=== PATIENT | male | born 1960 | race Two or more races ===

== ENCOUNTER 2018-10-03 11:32 | Emergency (ER) | payer OTHER ==
[~2018-10-03] VITALS: Ht 177.8 cm; Wt 95.3 kg
[2018-10-03 12:22] LABS: BASO % 1 % (0-3); EOS # 0.2 x10^3/uL (0.0-0.7); EOS % 5 % (0-3); HEMATOCRIT 45.1 % (39.0-53.0); HEMOGLOBIN 15.2 g/dL (13.0-17.5); LYMPH # 1.4 x10^3/uL (1.0-4.8); LYMPH % 29 % (24-48); MEAN CORPUSCULAR HEMOGLOBIN 30 pg (25-35); MEAN CORPUSCULAR HGB CONC 34 g/dL (31-37); MEAN CORPUSCULAR VOLUME 90 fL (79-100); MONO # 0.5 x10^3/uL (0.0-1.1); MONO % 9 % (0-9); NEUT # 2.8 x10^3uL (1.8-7.7); NEUT % 57 % (31-73); PLATELET COUNT 210 x10^3/uL (140-400); RED BLOOD COUNT 5.04 x10^6/uL (4.30-5.70); RED CELL DISTRIBUTION WIDTH 12.9 % (11.5-14.5); WHITE BLOOD COUNT 4.9 x10^3/uL (4.0-11.0)
[2018-10-03] MEDS ORDERED: ONDANSETRON PF 4 MG/2 ML VIAL. IV ONE (12:30)
[2018-10-03] MEDS ORDERED: IV NORMAL SALINE 1000ML BAG 1,000 ML IV SCH (12:30)
[2018-10-03] MEDS ORDERED: fentaNYL PF VIAL 100 MCG/2 ML VIAL IV ONE (12:30)
[2018-10-03 12:35] LABS: CALCIUM 8.6 mg/dL (8.5-10.1); CREATININE 1.4 mg/dL (0.7-1.3); GFR 52.2; POTASSIUM 3.8 mmol/L (3.5-5.1)
[2018-10-03 12:39] LABS: ALBUMIN/GLOBULIN RATIO 1.2 (1.0-1.7); TOTAL PROTEIN 7.3 g/dL (6.4-8.2)
--- NOTE | 2018-10-03 12:53 | EKG ---
[facility] [address] [place] [address] Test Date: 2018-10-03 Test Time: 11:45:45 Pat Name: TIMMY DAS Department: Room: Gender: M Inventory Auditor: : 1960 Requested By: AGUSTIN BUENROSTRO Order Number: [id number] Reading MD: Balaji Cai Measurements Intervals [place] Rate: 65 P: 41 RI: 210 QRS: -12 QRSD: 96 T: 9 QT: 382 QTc: 398 Interpretive Statements SINUS RHYTHM LEFTWARD AXIS Electronically Signed On 10-24-2018 12:30:44 CDT by Balaji Cai
--- NOTE | 2018-10-03 12:53 | RAD ---
CT abdomen pelvis without contrast dated 10/03/2018. No comparison available. CLINICAL INDICATION: Left lower quadrant pain for one day. TECHNIQUE: Contiguous axial imaging the abdomen and pelvis performed without the administration of IV or oral contrast. One or more of the following individualized dose reduction techniques were utilized for this examination: 1. Automated exposure control 2. Adjustment of the mA and/or kV according to patient size 3. Use of iterative reconstruction technique FINDINGS: There is a 7 mm calcific stone at the left UVJ with mild proximal dilation of the left ureter and left pelvicalyceal system. No calcific stone within the substance of either kidney. Liver, spleen, pancreas, adrenal glands and gallbladder are unremarkable. Unopacified GI tract normal in caliber and contour. No focal bowel wall thickening. No inflammatory stranding in the mesentery. The appendix is normal in caliber. No ascites or lymphadenopathy. Images of pelvis show nondistended urinary bladder. Prostate gland mildly enlarged. No free fluid or pelvic lymphadenopathy. Limited images of the lung bases are clear. Heart size within normal limits. No pleural or pericardial effusion. Bone windows show no acute findings. Mild to moderate lower lumbar spondylosis. IMPRESSION: 1. There is a 7 mm calcific stone at the left UVJ with mild obstructive uropathy. 2. Prostatomegaly. 3. Otherwise no acute findings. Electronically signed by: Clem Hernandez MD (10/03/2018 12:50 PM) [id number]
--- NOTE | 2018-10-03 13:08 | PHYS DOC ---
Past Medical History Past Medical History: No Pertinent History Past Surgical History: Other Additional Past Surgical Histo: VASECTOMY Alcohol Use: None Drug Use: None Adult General Chief Complaint Chief Complaint: ABDOMINAL PAIN HPI HPI Patient is a 57 year old male who brought in by EMS because of abdominal pain. Patient complaining of sudden onset of left lower quadrant pain about 30 minutes prior to arrival to ER as a constant sharp pain that getting better and worse without radiation. Patient complaining of nausea without vomiting, fever and chills, symptoms, shortness of breath and chest pain. Patient denies history of the same pain and recent dehydration. Patient rated his pain 10 over 10 and did not take pain medication for EMS. Review of Systems Review of Systems Constitutional: Denies fever or chills [] Eyes: Denies change in visual acuity, redness, or eye pain [] HENT: Denies nasal congestion or sore throat [] Respiratory: Denies cough or shortness of breath [] Cardiovascular: No additional information not addressed in HPI [] GI: Reports abdominal pain, nausea, denies vomiting, bloody stools or diarrhea [] : Denies dysuria or hematuria [] Musculoskeletal: Denies back pain or joint pain [] Integument: Denies rash or skin lesions [] Neurologic: Denies headache, focal weakness or sensory changes [] Endocrine: Denies polyuria or polydipsia [] All other systems were reviewed and found to be within normal limits, except as documented in this note. Current Medications Current Medications Current Medications Medications (Trade) Dose Ordered Sig/Baldomero Start Time Stop Time Status Last Admin Dose Admin Fentanyl Citrate (Fentanyl 2ml Vial) 50 mcg 1X ONCE 10/03/18 12:30 10/03/18 12:31 DC 10/03/18 12:35 50 MCG Ondansetron HCl (Zofran) 4 mg 1X ONCE 10/03/18 12:30 10/03/18 12:31 DC Sodium Chloride 1,000 ml @ 1,000 mls/hr 1X ONCE 10/03/18 14:00 10/03/18 14:58 DC 10/03/18 13:58 1,000 MLS/HR Allergies Allergies Allergies Coded Allergies Type Severity Reaction Last Updated Verified Sulfa (Sulfonamide Antibiotics) Allergy Intermediate 10/03/18 Yes Physical Exam Physical Exam Constitutional: Well developed, well nourished, moderate distress, non-toxic appearance. [] HENT: Normocephalic, atraumatic, oropharynx moist. Eyes: PERRLA, EOMI, conjunctiva normal, no discharge. [] Neck: Normal range of motion, no tenderness, supple, no stridor. [] Cardiovascular:Heart rate regular rhythm, no murmur [] Lungs & Thorax: Bilateral breath sounds clear to auscultation [] Abdomen: Bowel sounds normal, soft, left lower quadrant guarding, no tenderness, no masses, no pulsatile masses. [] Skin: Warm, dry, no erythema, no rash. [] Back: No tenderness, no CVA tenderness. [] Extremities: No tenderness, no cyanosis, no clubbing, ROM intact, no edema. [] Neurologic: Alert and oriented X 3, normal motor function, normal sensory function, no focal deficits noted. [] Psychologic: Affect normal, judgement normal, mood normal. [] Current Patient Data Vital Signs Vital Signs Date Time Temp Pulse Resp B/P (MAP) Pulse Ox O2 Delivery O2 Flow Rate FiO2 10/03/18 14:08 70 14 133/66 (88) 10/03/18 13:38 95 10/03/18 11:39 Room Air 10/03/18 11:32 97.7 97.7 Lab Values Laboratory Tests Test 10/03/18 11:52 10/03/18 13:51 White Blood Count 4.9 x10^3/uL (4.0-11.0) Red Blood Count 5.04 x10^6/uL (4.30-5.70) Hemoglobin 15.2 g/dL (13.0-17.5) Hematocrit 45.1 % (39.0-53.0) Mean Corpuscular Volume 90 fL (79-100) Mean Corpuscular Hemoglobin 30 pg (25-35) Mean Corpuscular Hemoglobin Concent 34 g/dL (31-37) Red Cell Distribution Width 12.9 % (11.5-14.5) Platelet Count 210 x10^3/uL (140-400) Neutrophils (%) (Auto) 57 % (31-73) Lymphocytes (%) (Auto) 29 % (24-48) Monocytes (%) (Auto) 9 % (0-9) Eosinophils (%) (Auto) 5 % (0-3) H Basophils (%) (Auto) 1 % (0-3) Neutrophils # (Auto) 2.8 x10^3uL (1.8-7.7) Lymphocytes # (Auto) 1.4 x10^3/uL (1.0-4.8) Monocytes # (Auto) 0.5 x10^3/uL (0.0-1.1) Eosinophils # (Auto) 0.2 x10^3/uL (0.0-0.7) Basophils # (Auto) 0.0 x10^3/uL (0.0-0.2) Sodium Level 137 mmol/L (136-145) Potassium Level 3.8 mmol/L (3.5-5.1) Chloride Level 99 mmol/L (98-107) Carbon Dioxide Level 22 mmol/L (21-32) Anion Gap 16 (6-14) H Blood Urea Nitrogen 33 mg/dL (8-26) H Creatinine 1.4 mg/dL (0.7-1.3) H Estimated GFR (Cockcroft-Gault) 52.2 BUN/Creatinine Ratio 24 (6-20) H Glucose Level 166 mg/dL (70-99) H Calcium Level 8.6 mg/dL (8.5-10.1) Total Bilirubin 1.0 mg/dL (0.2-1.0) Aspartate Amino Transferase (AST) 26 U/L (15-37) Alanine Aminotransferase (ALT) 37 U/L (16-63) Alkaline Phosphatase 106 U/L (46-116) Total Protein 7.3 g/dL (6.4-8.2) Albumin 4.0 g/dL (3.4-5.0) Albumin/Globulin Ratio 1.2 (1.0-1.7) Lipase 135 U/L (73-393) Urine Color Yellow Urine Clarity Clear Urine pH 5.0 Urine Specific [place] >=1.030 Urine Protein Negative mg/dL (NEG-TRACE) Urine Glucose (UA) Negative mg/dL (NEG) Urine Ketones (Stick) Negative mg/dL (NEG) Urine Blood Large (NEG) Urine Nitrite Negative (NEG) Urine Bilirubin Negative (NEG) Urine Urobilinogen Dipstick 0.2 mg/dL (0.2 mg/dL) Urine Leukocyte Esterase Negative (NEG) Urine RBC 6-10 /HPF (0-2) Urine WBC 1-4 /HPF (0-4) Urine Squamous Epithelial Cells Occ /LPF Urine Bacteria 0 /HPF (0-FEW) Urine Mucus Mod /LPF Laboratory Tests 10/03/18 11:52 Laboratory Tests 10/03/18 11:52 EKG EKG EKG interpreted by me. EKG at 1115 showed normal sinus rhythm at rate of 65, left gutiérrez axis, no acute ST and T-wave abnormalities. Radiology/Procedures Radiology/Procedures [facility] [address] [place] [address] IMAGING REPORT Signed PATIENT: TIMMY DAS ACCOUNT: [id number] : 1960 LOCATION: ER AGE: 57 SEX: M EXAM STATUS: REG ER ORD. PHYSICIAN: AGUSTIN BUENROSTRO MD REASON: LLQ pain x1 day PROCEDURE: CT ABDOMEN PELVIS WO CONTRAST CT abdomen pelvis without contrast dated 10/03/2018. No comparison available. CLINICAL INDICATION: Left lower quadrant pain for one day. TECHNIQUE: Contiguous axial imaging the abdomen and pelvis performed without the administration of IV or oral contrast. One or more of the following individualized dose reduction techniques were utilized for this examination: 1. Automated exposure control 2. Adjustment of the mA and/or kV according to patient size 3. Use of iterative reconstruction technique FINDINGS: There is a 7 mm calcific stone at the left UVJ with mild proximal dilation of the left ureter and left pelvicalyceal system. No calcific stone within the substance of either kidney. Liver, spleen, pancreas, adrenal glands and gallbladder are unremarkable. Unopacified GI tract normal in caliber and contour. No focal bowel wall thickening. No inflammatory stranding in the mesentery. The appendix is normal in caliber. No ascites or lymphadenopathy. Images of pelvis show nondistended urinary bladder. Prostate gland mildly enlarged. No free fluid or pelvic lymphadenopathy. Limited images of the lung bases are clear. Heart size within normal limits. No pleural or pericardial effusion. Bone windows show no acute findings. Mild to moderate lower lumbar spondylosis. IMPRESSION: 1. There is a 7 mm calcific stone at the left UVJ with mild obstructive uropathy. 2. Prostatomegaly. 3. Otherwise no acute findings. Electronically signed by: Clem Hernandez MD (10/03/2018 12:50 PM) [id number] DICTATED and SIGNED BY: CLEM HERNANDEZ MD DATE: 10/03/18 1250 Course & Med Decision Making Course & Med Decision Making Pertinent Labs and Imaging studies reviewed. (See chart for details) Evaluation of patient in ER showed 57-year-old male patient with complaining of sudden onset of left lower quadrant pain and nausea. Labs and CT showed 7 mm left UVJ junction stone and mild renal insufficiency. Patient treated with IV fluid and pain medication and felt better. Plan discharge patient home with diagnosis of kidney stone and instruction to follow up with urologist physical education teacher and strain all of his urine, Dragon Disclaimer Dragon Disclaimer This electronic medical record was generated, in whole or in part, using a voice recognition dictation system. Departure Departure Impression: Primary Impression: Renal colic on left side Additional Impressions: Ureterolithiasis Renal insufficiency Dehydration Disposition: HOME, SELF-CARE (at 1416) Condition: IMPROVED Referrals: UNKNOWN PCP NAME (PCP) MACY AGUILAR MD Patient Instructions: Dehydration, Adult, Diet for Kidney Stones, Kidney Stones Additional Instructions: Drink plenty of liquids Follow-up with your primary care physician in 3-5 days Return to ER if not getting better Strain all of your urine Follow-up with on-call urologist in one or 2 days Scripts Ondansetron Hcl (ZOFRAN) 4 Mg Tablet 1 TAB PO PRN Q6-8HRS for nausea, #12 TAB Prov: AGUSTIN BUENROSTRO MD 10/03/18 Hydrocodone/Apap 5-325 (NORCO 5-325 TABLET) 1 Each Tablet 1 TAB PO PRN Q6HRS PRN for PAIN, #14 TAB 0 Refills Prov: AGUSTIN BUENROSTRO MD 10/03/18 Tamsulosin Hcl (FLOMAX) 0.4 Mg Cap.er.24h 1 CAP PO DAILY, #14 CAP 0 Refills Prov: AGUSTIN BUENROSTRO MD 10/03/18 Problem Qualifiers AGUSTIN BUENROSTRO MD October 03, 2018 13:08
[2018-10-03] MEDS ORDERED: IV NORMAL SALINE 1000ML BAG 1,000 ML IV ONE (14:00)
[2018-10-03 14:02] LABS: BILIRUBIN,URINE NEGATIVE (NEG); CLARITY,URINE CLEAR; COLOR,URINE YELLOW; NITRITE,URINE NEGATIVE (NEG); PROTEIN,URINE NEGATIVE (NEG-TRACE); UROBILINOGEN,URINE 0.2 mg/dL (0.2 mg/dL)
[2018-10-03 14:08] VITALS: BP 133/66
[2018-10-03 14:10] LABS: BACTERIA,URINE 0 /HPF (0-FEW)
[2018-10-03 14:11] LABS: SQUAMOUS EPITHELIAL CELL,UR OCC /LPF
[2018-10-03] MEDS ORDERED: ONDA4TAB7 PO ×2 (14:20→14:50)
[2018-10-03] MEDS ORDERED: TAMS0.4C97 PO ×2 (14:20→14:50)
[2018-10-03] MEDS ORDERED: HYDR-3164 PO ×2 (14:20→14:50)
== END 2018-10-03 14:35 | disposition home or self-care (01) ==
LOC: ER 11:32
DX: N20.2 Calculus of kidney with calculus of ureter (principal); E86.0 Dehydration; N28.9 Disorder of kidney and ureter, unspecified; Z98.52 Vasectomy status; Z88.2 Allergy status to sulfonamides
CPT/HCPCS: 36415; 74176; 80053; 81001; 83690; 85025; 93005; 96361; 96374; 99285; J3010; J7030